=== PATIENT | male | born 1955 | race Caucasian/White ===

== ENCOUNTER 2020-03-22 23:50 | Emergency (ER) | payer SELFPAY ==
[2020-03-23] MEDS ORDERED: Tamsulosin 0.4 MG Cap.ER PO ONE (00:15)
--- NOTE | 2020-03-23 00:19 | EDM.PDOC ---
ED HPI GENERAL MEDICAL PROBLEM - General Chief Complaint: Genitourinary Problem Stated Complaint: SICK Time Seen by Provider: 03/23/20 00:03 - History of Present Illness INITIAL COMMENTS - FREE TEXT/NARRATIVE: 65-year-old male with history of BPH presents with acute urinary retention unable to urinate since around 3 PM this afternoon. Patient states that he was on Flomax previously he was also on a special diet that is urologist told him to stay on. He since been off the Flomax but is no longer on the diet and now has inability to urinate he has suprapubic pressure and discomfort he denies flank pain he denies lightheadedness or dizziness he denies fevers chills dysuria or hematuria. Pain is constant gradually worsening. lower abdomen Pain Score (Numeric/FACES): 10 - Related Data Allergies Allergy/AdvReac Type Severity Reaction Status Date / Time No Known Allergies Allergy Verified 03/23/20 00:04 Home Meds: Home Meds Tamsulosin HCl [Flomax] 0.4 mg PO DAILY 30 Days #30 cap.er.24h 03/23/20 [Rx] ED ROS GENERAL - Review of Systems Review Of Systems: See Below Free Text/Narrative/Comment: General: No fever. Skin: No rash. Eyes: No vision problems. ENT: No sore throat. Neck: No neck stiffness. Respiratory: No shortness of breath. Cardiac: No chest pain. Gastrointestinal: Per HPI Urinary: Per HPI Musculoskeletal: No myalgias/arthralgias. Neurologic: No headache. ED EXAM, GENERAL - Physical Exam Exam: See Below Free Text/Narrative:: General Appearance: No acute distress, appears comfortable Skin: No rash HEENT: Normocephalic/atraumatic, sclera anicteric, mucous membranes moist Neck: Normal range of motion Abdomen: Suprapubic fullness and tenderness Back: Normal Musculoskeletal: No edema or tenderness Neurologic: Awake, alert, no obvious deficits, moving all extremities Psychiatric: Appropriate, cooperative Course - Vital Signs Last Recorded V/S: Last Vital Signs Temp 96.5 F L 03/23/20 00:00 Pulse 75 03/23/20 00:00 Resp 18 03/23/20 00:00 BP 188/112 H 03/23/20 00:00 Pulse Ox 97 03/23/20 00:00 - Orders/Labs/Meds Meds: Medications Discontinued Medications Generic Name Dose Route Start Last Admin Trade Name Citlalli PRN Reason Stop Dose Admin Tamsulosin HCl 0.4 mg 03/23/20 00:15 03/23/20 00:20 Flomax PO 03/23/20 00:16 0.4 mg ONETIME ONE Administration Departure - Departure Time of Disposition: 00:43 Disposition: Home, Self-Care 01 Condition: Good Clinical Impression: Acute urinary retention - Discharge Information *PRESCRIPTION DRUG MONITORING PROGRAM REVIEWED*: Not Applicable *COPY OF PRESCRIPTION DRUG MONITORING REPORT IN PATIENT JEF: Not Applicable Prescriptions: Tamsulosin HCl [Flomax] 0.4 mg PO DAILY 30 Days #30 cap.er.24h Instructions: Acute Urinary Retention, Male, [id number] Forms: ED Department Discharge Additional Instructions: Please be sure to follow-up with your urologist. Because we did not leave a catheter in place it is possible that you could obstruct again. If this occurs please return to the emergency department if this happens again we will have no choice but to place a catheter. The following information is given to patients seen in the emergency department who are being discharged to home. This information is to outline your options for follow-up care. We provide all patients seen in our emergency department with a follow-up referral. The need for follow-up, as well as the timing and circumstances, are variable depending upon the specifics of your emergency department visit. If you don't have a primary care physician on staff, we will provide you with a referral. We always advise you to contact your personal physician following an emergency department visit to inform them of the circumstance of the visit and for follow-up with them and/or the need for any referrals to a consulting specialist. The emergency department will also refer you to a specialist when appropriate. T his referral assures that you have the opportunity for follow-up care with a specialist. All of these measure are taken in an effort to provide you with optimal care, which includes your follow-up. Under all circumstances we always encourage you to contact your private physician who remains a resource for coordinating your care. When calling for follow-up care, please make the office aware that this follow-up is from your recent emergency room visit. If for any reason you are refused follow-up, please contact the [facility] Emergency Department at and asked to speak to the emergency department charge nurse. Sepsis Event Note (ED) - Evaluation Sepsis Screening Result: No Definite Risk - Focused Exam Vital Signs: Vital Signs Temp Pulse Resp BP Pulse Ox 03/23/20 00:00 96.5 F L 75 18 188/112 H 97 - Assessment/Plan Assessment:: 65-year-old male presenting with acute urinary retention no signs of sepsis we did discuss that the standard care for this is to place a Goldberg catheter. However the patient adamantly refuses getting a Goldberg. He requests a straight cath and then to be restarted on Flomax. We discussed that while we can do this there is a high chance that he could obstruct again he understands that but is still adamant that he does not want it back. Patient will be straight cathed initial dose of Flomax will be given here and a prescription sent to his pharmacy. Return precautions discussed and understood. Patient had relief of symptoms with a little over 1 L drained patient discharged.
== END 2020-03-23 01:24 | disposition home or self-care (01) ==
LOC: MW.ED 23:50
DX: N40.1 Benign prostatic hyperplasia with lower urinary tract symptoms (principal); R33.8 Other retention of urine; Z79.899 Other long term (current) drug therapy
CPT/HCPCS: 51701; 99283; A9270

== ENCOUNTER 2020-11-12 02:27 | Emergency (ER) | payer BC ==
--- NOTE | 2020-11-12 02:59 | EDM.PDOC ---
ED HPI GENERAL MEDICAL PROBLEM - General Chief Complaint: Lower Extremity Injury/Pain Stated Complaint: LEFT LEG- POSSIBLE BLOOD CLOT Time Seen by Provider: 11/12/20 02:57 Source of Information: Reports: Patient History Limitations: Reports: No Limitations - History of Present Illness INITIAL COMMENTS - FREE TEXT/NARRATIVE: 65-year-old male presents with left posterior thigh swelling and bruising and pain after he slipped and landed on a pipe to his left posterior thigh at work 2 days ago. Denies fever, chills no extremity numbness or weakness. ROS: A 10-point review of systems, other than pertinent positives and negatives as stated per HPI, is otherwise negative Past medical history: No additional pertinent history Past Surgical history: No additional pertinent history Social history: No additional pertinent history Family history: No additional pertinent history PHYSICAL EXAM General: AOx4, GCS = 15, No distress HEENT: dry mucous membrane Neck: supple, no meningismus, no Kernig or Brudzinski Cardiac: S1S2 RRR Respiratory: CTAB, no crackles or rales, no wheezing Abdomen: Soft, nontender, no rebound or guarding, nondistended, no pulsatile mass. Back: nontender Musculoskeletal: NVI distally, ecchymosis and swelling to left posterior thigh, soft compartments, no deformity Neuro: No focal deficits, CN 2 - 12 WNL. left inner thigh Pain Score (Numeric/FACES): 1 - Related Data Allergies Allergy/AdvReac Type Severity Reaction Status Date / Time No Known Allergies Allergy Verified 11/12/20 02:56 Home Meds: Home Meds Tamsulosin HCl [Flomax] 0.4 mg PO DAILY 30 Days #30 cap.er.24h 03/23/20 [Rx] Past Medical History - Past Health History Medical/Surgical History: Denies Medical/Surgical History Social & Family History - Caffeine Use Caffeine Use: Reports: Coffee Review of Systems - Review of Systems Review Of Systems: See Below (see dictation) ED EXAM, GENERAL - Physical Exam Exam: See Below (see dictation) Course - Vital Signs Last Recorded V/S: Last Vital Signs Temp 97.6 F 11/12/20 02:56 Pulse 70 11/12/20 02:56 Resp 18 11/12/20 02:56 BP 175/97 H 11/12/20 02:56 Pulse Ox 97 11/12/20 02:56 - Orders/Labs/Meds Labs: Laboratory Tests 11/12/20 Range/Units 03:00 D-Dimer, Quantitative 0.36 (0.0-0.50) mg/L FEU - Re-Assessments/Exams Free Text/Narrative Re-Assessment/Exam: 11/12/20 03:28 After a negative dimer in the ER, the patient is stable for discharge. I performed a repeat exam and did not appreciate new abnormal findings. Patient exhibits normal vital signs and has a normal gait on road test. I advised the patient to return to the ER for reevaluation if symptoms worsened, including fever, worsening pain, or any other worrisome symptoms. I instructed the patient to follow up with their PCP within 2-3 days. MEDICAL DECISION MAKING: I reviewed the patients past medical records, lab and radiographic findings. I discussed the case with the patient. My differential diagnosis included: DVT, hematoma. Patient patient's D-dimer is negative, I do not suspect need to undergo lower extremity venous Doppler study. His clinical exam is consistent with hematoma. The affected extremity demonstrated good distal perfusion, warm, pink, cap refill <2 seconds, compartments soft, pulses equal in both extremities. Patient understands to return immediately for worsening pain, swelling, fever, numbness/tingling or other concerns and to f/u with PMD if no improvement of symptoms within 3-5 days. Departure - Departure Time of Disposition: 03:25 Disposition: Home, Self-Care 01 Condition: Good Clinical Impression: Contusion of thigh - Discharge Information *PRESCRIPTION DRUG MONITORING PROGRAM REVIEWED*: Not Applicable *COPY OF PRESCRIPTION DRUG MONITORING REPORT IN PATIENT JEF: Not Applicable Instructions: Contusion, [id number] Referrals: Sammy Nunes MD [Primary Care Provider] - 2 Days Forms: ED Department Discharge Additional Instructions: The need for follow-up, as well as the timing and circumstances, are variable depending upon the specifics of your emergency department visit. If you don't have a primary care physician on staff, we will provide you with a referral. We always advise you to contact your personal physician following an emergency department visit to inform them of the circumstance of the visit and for follow-up with them and/or the need for any referrals to a consulting specialist. The emergency department will also refer you to a specialist when appropriate. This referral assures that you have the opportunity for follow-up care with a specialist. All of these measure are taken in an effort to provide you with optimal care, which includes your follow-up. Under all circumstances we always encourage you to contact your private physician who remains a resource for coordinating your care. When calling for follow-up care, please make the office aware that this follow-up is from your recent emergency room visit. If for any reason you are refused follow-up, please contact the [facility] Emergency Department at and asked to speak to the emergency department charge nurse. If you do not have a primary care doctor, please follow up with the clinics below within 3-[address] [facility] [address] [place] [address] [place] [address] Sepsis Event Note (ED) - Focused Exam Vital Signs: Vital Signs Temp Pulse Resp BP Pulse Ox 11/12/20 02:56 97.6 F 70 18 175/97 H 97
== END 2020-11-12 03:33 | disposition home or self-care (01) ==
LOC: MW.ED 02:27
DX: S70.12XA Contusion of left thigh, initial encounter (principal); W18.40XA Slipping, tripping and stumbling without falling, unspecified, initial encounter; Y92.89 Other specified places as the place of occurrence of the external cause; Y99.0 Civilian activity done for income or pay
CPT/HCPCS: 36415; 85379; 99283

== ENCOUNTER 2023-08-16 10:21 | Emergency (ER) | payer BC, OTHER ==
[2023-08-16] MEDS: cefTRIAXone 1 GM in Sodium Chloride 0.9% 50 ML IV ONE (11:35)
[2023-08-16] MEDS: Sodium Chloride 0.9% 1,000 ML IV ONE (11:35)
[2023-08-16] MEDS: Sodium Chloride 0.9% 10 ML Syringe FLUSH PRN (11:37)
[2023-08-16] MEDS: Sodium Chloride 0.9% 2.5 ML Syringe FLUSH PRN (11:37)
[2023-08-16 11:49] LABS: BASOPHILS ABSOLUTE AUTO 0.03 K/uL (0.00-0.20); BASOPHILS PERCENT AUTO 0.4 % (0.0-1.0); EOSINOPHILS ABSOLUTE AUTO 0.24 K/uL (0.00-0.45); EOSINOPHILS PERCENT AUTO 3.2 % (0.0-6.0); HEMATOCRIT 40.5 % (42.0-52.0); HEMOGLOBIN 14.4 g/dL (14.0-18.0); IMMATURE GRAN ABSOLUTE AUTO 0.01 K/uL (0.00-0.05); IMMATURE GRAN PERCENT AUTO 0.1 % (0.0-0.4); LYMPHOCYTES ABSOLUTE AUTO 1.64 K/uL (1.00-4.80); LYMPHOCYTES PERCENT AUTO 21.7 % (24.0-44.0); MEAN CORPUSCULAR HEMOGLOBIN 31.5 pg (28.0-32.0); MEAN CORPUSCULAR HGB CONC 35.6 g/dL (32.0-36.0); MEAN CORPUSCULAR VOLUME 88.6 fL (83.0-99.0); MEAN PLATELET VOLUME 9.3 fL (9.4-12.4); MONOCYTES ABSOLUTE AUTO 0.61 K/uL (0.00-0.80); MONOCYTES PERCENT AUTO 8.1 % (0.0-8.0); NEUTROPHILS ABSOLUTE AUTO 5.03 K/uL (1.80-7.70); NEUTROPHILS PERCENT AUTO 66.5 % (41.0-71.0); PLATELET COUNT,PLT 346 K/uL (150-400); RED BLOOD CELL COUNT 4.57 M/uL (4.52-5.90); WHITE BLOOD CELL COUNT,WBC 7.56 K/uL (3.9-11.3)
[2023-08-16 11:50] LABS: APPEARANCE,URINE CLOUDY; COLOR,URINE BROWN; GLUCOSE,URINE NEGATIVE (NEGATIVE); KETONES,URINE NEGATIVE (NEGATIVE); LEUKOCYTE ESTERASE,URINE NEGATIVE (NEGATIVE); NITRITE,URINE POSITIVE (NEGATIVE); OCCULT BLOOD,URINE LARGE (NEGATIVE); PH,URINE 6.5 (5.0-8.0); PROTEIN,URINE 30 mg/dL (NEGATIVE); UROBILINOGEN,URINE 0.2 EU/dL (<2.0)
[2023-08-16 11:58] LABS: BILIRUBIN,URINE SMALL (NEGATIVE)
[2023-08-16 12:03] LABS: BACTERIA,URINE FEW (NEGATIVE); EPITHELIAL CELLS,URINE OCCASIONAL (NONE-FEW); RBC,URINE TOO NUMEROUS TO CT (0-2/HPF)
[2023-08-16 12:10] LABS: A/G RATIO 1.2 (0.9-1.6); ALBUMIN 3.9 g/dL (3.4-5.0); BILIRUBIN TOTAL 0.6 mg/dL (0.2-1.0); CALCIUM 9.8 mg/dL (8.5-10.1); CARBON DIOXIDE,CO2 28.3 mmol/L (21.0-32.0); CREATININE 1.4 mg/dL (0.8-1.3); EST CRCL DRUG DOSING (CG) 57.86 mL/min; POTASSIUM,K 3.6 mmol/L (3.5-5.1); PROTEIN TOTAL,TP 7.2 g/dL (6.4-8.2)
== END 2023-08-16 13:14 | disposition home or self-care (01) ==
LOC: MW.ED 10:21
DX: N39.0 Urinary tract infection, site not specified (principal); N41.9 Inflammatory disease of prostate, unspecified; R31.9 Hematuria, unspecified; Z75.8 Other problems related to medical facilities and other health care
CPT/HCPCS: 36415; 80053; 81001; 81003; 85025; 87086; 96361; 96365; 99283; J0696; J3490; J7030

== ENCOUNTER 2023-09-19 18:27 | Emergency (ER) | payer BC, OTHER ==
[2023-09-19 18:43] LABS: BILIRUBIN,URINE NEGATIVE (NEGATIVE); COLOR,URINE BROWN; GLUCOSE,URINE NEGATIVE (NEGATIVE); KETONES,URINE NEGATIVE (NEGATIVE); LEUKOCYTE ESTERASE,URINE NEGATIVE (NEGATIVE); NITRITE,URINE NEGATIVE (NEGATIVE); OCCULT BLOOD,URINE LARGE (NEGATIVE); PROTEIN,URINE TRACE mg/dL (NEGATIVE); UROBILINOGEN,URINE 0.2 EU/dL (<2.0)
[2023-09-19 18:46] LABS: APPEARANCE,URINE CLOUDY
[2023-09-19 18:51] LABS: BACTERIA,URINE FEW (NEGATIVE); MUCUS,URINE NOT SEEN (NONE-MOD); RBC,URINE 75-100 (0-2/HPF); SQUAMOUS EPITHELIAL CELLS,UR NOT SEEN; WBC,URINE 0-1 (0-5/HPF)
[2023-09-19] MEDS: Sodium Chloride 0.9% 2.5 ML Syringe FLUSH PRN (19:31)
[2023-09-19] MEDS: Sodium Chloride 0.9% 10 ML Syringe FLUSH PRN (19:31)
[2023-09-19 19:42] LABS: BASOPHILS ABSOLUTE AUTO 0.03 K/uL (0.00-0.20); BASOPHILS PERCENT AUTO 0.3 % (0.0-1.0); EOSINOPHILS ABSOLUTE AUTO 0.38 K/uL (0.00-0.45); EOSINOPHILS PERCENT AUTO 3.9 % (0.0-6.0); HEMATOCRIT 41.1 % (42.0-52.0); HEMOGLOBIN 14.2 g/dL (14.0-18.0); IMMATURE GRAN ABSOLUTE AUTO 0.03 K/uL (0.00-0.05); IMMATURE GRAN PERCENT AUTO 0.3 % (0.0-0.4); LYMPHOCYTES ABSOLUTE AUTO 2.11 K/uL (1.00-4.80); LYMPHOCYTES PERCENT AUTO 21.8 % (24.0-44.0); MEAN CORPUSCULAR HEMOGLOBIN 30.9 pg (28.0-32.0); MEAN CORPUSCULAR HGB CONC 34.5 g/dL (32.0-36.0); MEAN CORPUSCULAR VOLUME 89.3 fL (83.0-99.0); MEAN PLATELET VOLUME 9.5 fL (9.4-12.4); MONOCYTES ABSOLUTE AUTO 0.62 K/uL (0.00-0.80); MONOCYTES PERCENT AUTO 6.4 % (0.0-8.0); NEUTROPHILS ABSOLUTE AUTO 6.53 K/uL (1.80-7.70); NEUTROPHILS PERCENT AUTO 67.3 % (41.0-71.0); PLATELET COUNT,PLT 336 K/uL (150-400)
[2023-09-19 20:04] LABS: ALBUMIN 3.6 g/dL (3.4-5.0); BILIRUBIN TOTAL 0.4 mg/dL (0.2-1.0); CALCIUM 8.7 mg/dL (8.5-10.1); CARBON DIOXIDE,CO2 26.6 mmol/L (21.0-32.0); EST CRCL DRUG DOSING (CG) 81.01 mL/min; POTASSIUM,K 3.6 mmol/L (3.5-5.1); PROTEIN TOTAL,TP 7.1 g/dL (6.4-8.2)
[2023-09-22] MEDS: Iopamidol 755 MG/ML 500 ML Multipack Bottle IVPUSH STA (07:04)
== END 2023-09-19 22:22 | disposition home or self-care (01) ==
LOC: MW.ED 18:27
DX: N21.0 Calculus in bladder (principal); K76.89 Other specified diseases of liver; R31.9 Hematuria, unspecified; R33.9 Retention of urine, unspecified; R91.1 Solitary pulmonary nodule; Z75.8 Other problems related to medical facilities and other health care; Z87.891 Personal history of nicotine dependence; Z79.899 Other long term (current) drug therapy
CPT/HCPCS: 36415; 51798; 74177; 80053; 81001; 85025; 99284; J3490; Q9967

== ENCOUNTER 2024-09-17 16:25 | Emergency (ER) | payer MEDICARE, BC | END 2024-09-17 18:58 | disposition left against medical advice (07) | LOC: MW.ED 16:25 | DX: Z53.21 Procedure and treatment not carried out due to patient leaving prior to being seen by health care provider (principal) ==

== ENCOUNTER 2024-11-19 11:10 | Emergency (ER) | payer BC, MEDICARE | END 2024-11-19 12:05 | disposition left against medical advice (07) | LOC: MW.ED 11:10 | DX: N52.9 Male erectile dysfunction, unspecified (principal); I10 Essential (primary) hypertension; F17.210 Nicotine dependence, cigarettes, uncomplicated; Z79.899 Other long term (current) drug therapy | CPT/HCPCS: 99282; 99283 ==